=== PATIENT | female | born 1945 | race African-American/Black ===

== ENCOUNTER 2023-04-24 17:25 | Emergency (ER) | payer OTHER ==
[~2023-04-24] VITALS: Ht 165.1 cm; Wt 73.0 kg
[2023-04-24 17:35] VITALS: BP 116/44; PULSE 60; RESP 16; TEMP 98.1; O2SAT 98
[2023-04-24] MEDS ORDERED: GABAPENTIN (17:35)
[2023-04-24] MEDS ORDERED: LASIX (17:35)
[2023-04-24] MEDS ORDERED: METOPROLOL (17:35)
[2023-04-24] MEDS ORDERED: NEURONTIN (17:35)
[2023-04-24] MEDS ORDERED: PLAVIX (17:35)
== END 2023-04-24 18:36 | disposition home or self-care (01) ==
LOC: ER 17:25
DX: R55 Syncope and collapse (principal)
CPT/HCPCS: 99283